=== PATIENT | female | born 1940 | race Caucasian/White ===

== ENCOUNTER → 2020-11-22 15:38 | Outpatient (CLI) | payer MEDICARE, OTHER, SELFPAY ==
--- NOTE | 2020-11-22 | DI.ECHO.S_ITS ---
[facility]---------+ [facility] +---------+ : : [address] : : : : [id number] : : : : Phone: [phone] +---------+ Echocardiogram Report + + :Name: JACINDA MOSQUERA Study Date: 11/22/2020 Height: 66.5 in: :[facility] ReadingLocation: Weight: 195 lb : : Gender: Female BSA: 2.0 m2 : :: 1940 Age: 80 yrs BP: 130/74 mmHg: :Reason For Study: THORACIC AORTIC ANEURYSM : :Ordering Physician: KARISSA, : :TAWANDA Performed By: Amy Trammell : :Referring: DEE SERVIN M : + + Interpretation Summary The left ventricle is normal in size. The ejection fraction is estimated to be 55-60%. The right ventricle is normal in size and function. Aortic valve was not well visualized however A bicuspid aortic valve cannot be excluded. One of the cusp is moderately calcified without any significant aortic stenosis or regurgitation. The ascending aorta is severely enlarged. 5.2 cm in diameter.The aortic arch is mildly enlarged. In August 2019, as per [facility] echo report, ascending aorta diameter about 5.1 cm and that time aortic valve reported to be tricuspid. The IVC is of normal diameter and collapses greater than 50% with a sniff. This suggests a low right atrial pressure of 3 mm Hg. There is mild luminal irregularity and echogenicity in the abdominal aorta, suggestive of aortic atherosclerotic disease. Procedure: A two-dimensional transthoracic echocardiogram with color flow and Doppler was performed. The study quality was technically adequate. There is no prior echocardiogram noted for this patient. The patient was in sinus rhythm with heart rates between 66-75 bpm during the exam. Left Ventricle: The left ventricle is normal in size. Left ventricular wall thickness is borderline increased. Proximal septal thickening is noted. There is no echo evidence for significant left ventricular outflow tract obstruction. There is no thrombus. The ejection fraction is estimated to be 55-60%. In parasternal long axis view, there appears to be tardo kinesis of basal posterior wall. Diastolic parameters suggest a relaxation abnormality of the left ventricle, consistent with probable normal filling pressures. Right Ventricle: The right ventricle is normal in size and function. Atria: Both atria are normal in size. There is no Doppler evidence for an interatrial shunt. Mitral Valve: The mitral valve leaflets are slightly calcified. There is mild mitral annular calcification. There is trace mitral regurgitation. Aortic Valve: The aortic valve is not well visualized. A bicuspid aortic valve cannot be excluded. One of the cusp is moderately calcified without any significant aortic stenosis or regurgitation. There is no aortic valve stenosis. There is trace aortic regurgitation. Tricuspid Valve: The tricuspid valve is normal in structure and function. There is trace tricuspid regurgitation. Pulmonary artery pressures cannot be estimated because of the lack of a measurable TR jet velocity but the IVC suggests a CVP of around 3 mmHg. Pulmonic Valve: The pulmonic valve is not well visualized. There is no pulmonic valvular regurgitation. Great Vessels: The aortic root is not well visualized. The ascending aorta is severely enlarged. There is mild luminal irregularity and echogenicity in the abdominal aorta, suggestive of aortic atherosclerotic disease. The aortic arch is mildly enlarged. The IVC is of normal diameter and collapses greater than 50% with a sniff. This suggests a low right atrial pressure of 3 mm Hg. Pericardium/ Pleura There is no pericardial effusion. There is an anterior echo-free space consistent with a fat pad. There is no pleural effusion. MMode/2D Measurements & Calculations LVIDd: 4.0 cm LVOT diam: 2.1 cm LVIDs: 2.4 cm asc Aorta Diam: 5.2 cm FS: 38.5 % Ao Arch Diam (Prox Trans): 3.6 cm IVSd: 1.1 cm LVPWd: 0.89 cm LV walters. diameter/BSA (cm/m^2): 2.0 LV sys. diameter/BSA (cm/m^2): 1.2 LA A2 area: 16.6 cm2 RA long axis: 3.8 cm LA A4 area: 14.2 cm2 RA area: 8.5 cm2 LA length (vol): 4.7 cm RA vol: 16.3 ml LA vol: 42.5 ml RA : 8.2 ml/m2 LA vol index: 21.3 ml/m2 IVC diam: 1.1 cm RVD1 (basal): 2.6 cm TAPSE: 2.0 cm Doppler Measurements & Calculations Ao V2 max: 103.4 cm/sec LVOT Max Clint: 95.3 cm/sec Ao V2 mean: 72.3 cm/sec LV V1 max P.6 mmHg Ao max P.3 mmHg LV V1 VTI: 17.8 cm Ao mean P.4 mmHg NIK(I,D): 3.0 cm2 Ao V2 VTI: 21.5 cm NIK(V,D): 3.3 cm2 sev ratio: 0.83 NIK indexed to BSA (cm^2/m^2): 1.5 MV E max clint: 73.7 cm/sec PA pr(Accel): 24.2 mmHg MV A max clint: 94.3 cm/sec MV E/A: 0.78 Med Peak E' Clint: 6.2 cm/sec E/E' med: 11.8 Lat Peak E' Clint: 8.1 cm/sec E/E' lat: 9.1 E/e' average: 10.5 MV dec time: 0.24 sec SV(LVOT): 64.1 ml Reading Physician:11:57 AM
== END ==
PROVIDERS: Family Provider Family Medicine; PCP Family Medicine; Referring Provider Internal Medicine Cardiovascular Disease; Visit Provider Internal Medicine Cardiovascular Disease
DX: I71.2 Thoracic aortic aneurysm, without rupture (principal)
CPT/HCPCS: 93306

== ENCOUNTER → 2022-01-11 10:52 | Outpatient (CLI) | payer OTHER, SELFPAY ==
[2022-01-11 12:48] LABS: Alanine Aminotransferase 26 IU/L (<35); Albumin 4.2 g/dL (3.5-5.0); Albumin Globulin Ratio 1.2 (1.0-2.8); Alkaline Phosphatase 120 U/L (38-126); Aspartate Aminotransferase 25 IU/L (14-36); BUN Creatinine Ratio 25.4 (6-22); Bilirubin Total 0.8 mg/dL (0.2-1.3); Blood Urea Nitrogen 18 mg/dL (7-17); Calcium 8.9 mg/dL (8.4-10.2); Carbon Dioxide 22 mmol/L (22-32); Chloride 102 mmol/L (98-107); Estimated Glomerular Filt Rate > 60 mL/min (>60); Globulin 3.4 g/dL (1.7-4.1); Glucose 345 mg/dL (80-110); HEMOLYSIS < 15 (0-50); Potassium 4.3 mmol/L (3.4-5.1); Sodium 133 mmol/L (137-145); Total Protein 7.6 g/dL (6.3-8.2)
[2022-01-11 12:49] LABS: Hemoglobin A1C% w Est Avg Glu 11.2 % (4.0-6.0)
[2022-01-11 13:56] LABS: Thyroid Stimulating Hormone 0.765 uIU/mL (0.47-4.68)
[2022-01-13 22:29] LABS: Metanephrine,Plasma 17.8 pg/mL (0.0-88.0)
== END ==
PROVIDERS: Family Provider Family Medicine; PCP Internal Medicine; Referring Provider Nurse Practitioner Family; Visit Provider Nurse Practitioner Family
DX: I10 Essential (primary) hypertension (principal); E78.5 Hyperlipidemia, unspecified
CPT/HCPCS: 36415; 80053; 83036; 83835; 84244; 84443

== ENCOUNTER → 2022-03-09 13:42 | Outpatient (CLI) | payer OTHER, SELFPAY ==
--- NOTE | 2022-03-09 | DI.ECHO.S_ITS ---
[facility]---------+ [facility] +---------+ : : [address] : : : : [id number] : : : : Phone: [phone]+ Echocardiogram Report + + :Name: JACINDA MOSQUERA Study Date: 03/09/2022 Height: 66 in : :[facility] ReadingLocation: Weight: 195 lb : : Gender: Female BSA: 2.0 m2 : :: 1940 Age: 81 yrs BP: 181/91 mmHg: :Reason For Study: Aortic, Ascending Aneurysm : :Ordering Physician: Ulices, : :Karen Performed By: Ramana Acosta : :Referring: Karen Elena : + + Interpretation Summary The left ventricle is normal in size. There is mild concentric left ventricular hypertrophy. Left ventricular systolic function is normal. The ejection fraction is estimated to be 55-60%. Hypokinesis along the basal to mid inferior/inferolateral segements which were noted on prior study. The right ventricle is normal in size and function. Pulmonary artery pressures cannot be estimated because of the lack of a measurable TR jet velocity. Both atria are normal in size. There is no significant valvular heart disease. The ascending aorta is severely enlarged and the aortic arch is moderately enlarged which both have not changed significantly since prior study. Procedure: A two-dimensional transthoracic echocardiogram with color flow and Doppler was performed. The study quality was technically adequate. Comparison is made with the echocardiogram of 11/22/2020. Left Ventricle: The left ventricle is normal in size. There is mild concentric left ventricular hypertrophy. Left ventricular systolic function is normal. The ejection fraction is estimated to be 55-60%. Hypokinesis along the basal to mid inferior/inferolateral segements which were noted on prior study. Diastolic function could not be accurately assessed due to unobtainable data. Right Ventricle: The right ventricle is normal in size and function. Atria: Both atria are normal in size. The interatrial septum grossly appears intact with no obvious evidence for an atrial septal defect. Mitral Valve: The mitral valve is normal in structure and function. There is trace mitral regurgitation. Aortic Valve: There is mild aortic valve sclerosis. The aortic valve is trileaflet. There is discrete nodular thickening of the non- coronary cusp. There is trace aortic regurgitation. Tricuspid Valve: The tricuspid valve is normal in structure and function. No tricuspid regurgitation. Pulmonary artery pressures cannot be estimated because of the lack of a measurable TR jet velocity. Pulmonic Valve: The pulmonic valve is normal in structure and function. There is no pulmonic valvular regurgitation. There is no significant valvular heart disease. Great Vessels: The aortic root is normal size. The ascending aorta is severely enlarged. The aortic arch is moderately enlarged. The IVC is of normal diameter and collapses greater than 50% with a sniff. This suggests a low right atrial pressure of 3 mm Hg. Pericardium/ Pleura There is no pericardial effusion. There is no pleural effusion. MMode/2D Measurements & Calculations LVIDd: 4.2 cm LVOT diam: 2.1 cm LVIDs: 2.8 cm Ao root diam: 3.3 cm FS: 33.3 % asc Aorta Diam: 5.1 cm IVSd: 1.1 cm Ao Arch Diam (Prox Trans): 3.8 cm LVPWd: 1.1 cm LV walters. diameter/BSA (cm/m^2): 2.1 LV sys. diameter/BSA (cm/m^2): 1.4 LA dimension: 2.3 cm RA long axis: 4.3 cm LA A2 area: 16.7 cm2 LA A4 area: 16.1 cm2 LA length (vol): 5.2 cm LA vol: 43.8 ml LA vol index: 22.1 ml/m2 TAPSE_phl: 1.8 cm Doppler Measurements & Calculations Ao V2 max: 115.0 cm/sec LVOT Max Clint: 89.4 cm/sec Ao V2 mean: 79.2 cm/sec LV V1 max P.2 mmHg Ao max P.0 mmHg LV V1 VTI: 19.2 cm Ao mean P.0 mmHg NIK(I,D): 2.8 cm2 Ao V2 VTI: 23.6 cm NIK(V,D): 2.7 cm2 sev ratio: 0.81 NIK indexed to BSA (cm^2/m^2): 1.4 MV E max clint: 104.0 cm/sec SV(LVOT): 66.5 ml MV A max clint: 94.3 cm/sec MV E/A: 1.1 Med Peak E' Clint: 6.4 cm/sec E/E' med: 16.3 Lat Peak E' Clint: 8.4 cm/sec E/E' lat: 12.4 E/e' average: 14.3 MV dec time: 0.20 sec AV VR_phl: 0.78 MV P1/2t-pr_phl: 59.0 msec NIK(VTI)/BSA_phl: 1.4 Reading Physician:03:32 PM
== END ==
PROVIDERS: Family Provider Family Medicine; PCP Internal Medicine; Referring Provider Nurse Practitioner Family; Visit Provider Nurse Practitioner Family
DX: I71.2 Thoracic aortic aneurysm, without rupture (principal)
CPT/HCPCS: 93306

== ENCOUNTER → 2023-12-06 15:05 | Outpatient (CLI) | payer OTHER, SELFPAY ==
--- NOTE | 2023-12-06 15:08 | DI.US.S_ITS ---
PROCEDURE: US PERIPH VENOUS LOW EXTREM BI INDICATIONS: FLOOW UP FOR SVT RIGHT, NEW SWELLING IN LEFT LEG TECHNIQUE: Real-time imaging, as well as color and pulse Doppler interrogation, were performed of the deep veins of both legs from the inguinal ligament to the popliteal fossa, with documentation of the visualized calf veins. COMPARISON: None. FINDINGS: Right: The common femoral, femoral, popliteal, and the visualized calf veins are normally compressible, and free of intraluminal thrombus. Color and pulse Doppler demonstrate normal phasic intravascular flow. There is normal augmentation response to distal compression maneuver. Superficial venous thrombosis can be seen on the right, involving the greater saphenous vein. Left: The common femoral, femoral, popliteal, and the visualized calf veins are normally compressible, and free of intraluminal thrombus. Color and pulse Doppler demonstrate normal phasic intravascular flow. There is normal augmentation response to distal compression maneuver. IMPRESSION: No findings of deep venous thrombosis in either lower extremity. Superficial venous thrombosis is seen on the right, with thrombus within the greater saphenous vein. By report, this was present previously. Dictated by: Ridge Pride M.D. on 12/06/2023 at 15:24 Approved by: Ridge Pride M.D. on 12/06/2023 at 15:25
== END ==
PROVIDERS: Family Provider Family Medicine; PCP Internal Medicine; Referring Provider Nurse Practitioner Acute Care; Visit Provider Nurse Practitioner Acute Care
DX: I82.811 Embolism and thrombosis of superficial veins of right lower extremity (principal); R60.9 Edema, unspecified
CPT/HCPCS: 93970

== ENCOUNTER → 2024-12-28 10:35 | Outpatient (CLI) | payer OTHER, SELFPAY ==
[2024-12-28 11:29] LABS: Influenza A - CEPHEID Flu A NEGATIVE (NEGATIVE); Influenza B - CEPHEID Flu B NEGATIVE (NEGATIVE); Respiratory Syncytial Virus Negative (Negative)
[2024-12-28 11:45] LABS: COVID-19 CEPHEID 4-PLEX PCR Negative (Negative)
== END ==
PROVIDERS: Family Provider Family Medicine; PCP Internal Medicine; Visit Provider Nurse Practitioner Family
DX: R50.9 Fever, unspecified (principal); J02.9 Acute pharyngitis, unspecified
CPT/HCPCS: 0241U; 87070

== ENCOUNTER → 2024-12-28 10:57 | Outpatient (CLI) | payer OTHER, SELFPAY ==
--- NOTE | 2024-12-28 10:57 | DI.RAD.S_ITS ---
PROCEDURE: XR CHEST 2V INDICATIONS: Cough TECHNIQUE: 2 views of the chest were acquired. COMPARISON: CT chest abdomen pelvis angiogram 09/08/2019. FINDINGS: Surgical changes and devices: None. Lungs and pleura: Hyperinflation with diffuse reticulated opacification. No pleural effusions or pneumothorax. 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 Heart size is normal. Bones and chest wall: No suspicious bony abnormalities. Soft tissues appear unremarkable. IMPRESSION: 1. Emphysema with possible underlying interstitial lung disease. 2. 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 Please refer to the 09/08/2019 CT chest abdomen pelvis angiogram report for details and follow-up recommendations. Dictated by: Bart Domínguez M.D. on 12/28/2024 at 17:20 Approved by: Bart Domínguez M.D. on 12/28/2024 at 17:23
== END ==
LOC: RAD 10:57
PROVIDERS: Family Provider Family Medicine; PCP Internal Medicine; Referring Provider Nurse Practitioner Family; Visit Provider Nurse Practitioner Family
DX: R05.9 Cough, unspecified (principal); R50.9 Fever, unspecified; J02.9 Acute pharyngitis, unspecified; J43.9 Emphysema, unspecified; I71.22 Aneurysm of the aortic arch, without rupture
CPT/HCPCS: 0241U; 71046; 87070

== ENCOUNTER → 2025-01-30 12:03 | Outpatient (CLI) | payer OTHER, SELFPAY ==
--- NOTE | 2025-01-30 12:04 | DI.ECHO.S_ITS ---
[facility] : : [address] : : [facility] : : [place], : : [place] [id number] : : Phone: [phone] Echocardiogram Report + + :Name: JACINDA MOSQUERA Study Date: 01/30/2025 Height: 66 in : :[facility] ReadingLocation: Weight: 185 lb : : Gender: Female BSA: 1.9 m2 : :: 1940 Age: 84 yrs BP: 170/106 mmHg: :Reason For Study: ANEURYSM OF ASCENIDNG AORTA : :Ordering Physician: ASHLEIGH, : :GIOVANNA Performed By: Kunal Ni : :Referring: GIOVANNA SOTELO : + + Interpretation Summary The left ventricle is normal in size. Left ventricular ejection fraction is estimated to be 55 +/- 5%. No significant change in LVEF from the previous study. Normal RV size and function In the study, aortic valve appears to be tricuspid with heavy calcification of the noncoronary cusp with some restriction without any significant aortic stenosis. Trivial aortic regurgitation. Nodular calcified density attached to the coaptation margin of right coronary cusp The ascending aorta is severely enlarged. 5.1 cm in diameter. Previously 5.2 cm. The IVC is of normal diameter and collapses greater than 50% with a sniff. This suggests a low right atrial pressure of 3 mm Hg. There is mild luminal irregularity and echogenicity in the abdominal aorta, suggestive of aortic atherosclerotic disease. BP: 170/106 mmHg Procedure: A two-dimensional transthoracic echocardiogram with color flow and Doppler was performed. The study quality was technically good. There is no prior echocardiogram noted for this patient. The patient was in normal sinus rhythm during the exam. Left Ventricle: The left ventricle is normal in size. Proximal septal thickening is noted. There is no echo evidence for significant left ventricular outflow tract obstruction. There is no thrombus. Left ventricular ejection fraction is estimated to be 55 +/- 5%. In parasternal long axis view, there appears to be tardo kinesis of basal posterior wall. Unchanged from the previous study. MV E/A: 1.1 Med Peak E' Clint: 5.9 cm/sec E/E' med: 16.2. Right Ventricle: The right ventricle is normal in size and function. Atria: The left atrial size is normal. There has been no significant change since the previous study. Right atrial size is normal. There is no Doppler evidence for an interatrial shunt. Mitral Valve: The mitral valve leaflets are slightly calcified. There is mild mitral annular calcification. There is trace mitral regurgitation. Aortic Valve: In the study, aortic valve appears to be tricuspid with heavy calcification of the noncoronary cusp with some restriction without any significant aortic stenosis. Trivial aortic regurgitation. Nodular calcified density attached to the coaptation margin of right coronary cusp. There is trace aortic regurgitation. Tricuspid Valve: The tricuspid valve leaflets are thin and pliable. Pulmonary artery pressures cannot be estimated because of the lack of a measurable TR jet velocity. There is trace tricuspid regurgitation. Pulmonic Valve: The pulmonic valve is not well seen, but is grossly normal. There is no pulmonic valvular regurgitation. Great Vessels: The aortic root is mildly dilated. The ascending aorta is severely enlarged. There is mild luminal irregularity and echogenicity in the abdominal aorta, suggestive of aortic atherosclerotic disease. The pulmonary artery is normal size. The IVC is of normal diameter and collapses greater than 50% with a sniff. This suggests a low right atrial pressure of 3 mm Hg. Pericardium/ Pleura There is no pericardial effusion. There is no pleural effusion. MMode/2D Measurements & Calculations LVIDd: 4.1 cm AoV Openin.5 cm LVIDs: 2.9 cm LVOT diam: 2.3 cm IVSd: 1.3 cm Ao root diam: 3.7 cm LVPWd: 0.86 cm asc Aorta Diam: 5.1 cm LV walters. diameter/BSA (cm/m^2): 2.1 Ao Arch Diam (Prox Trans): 2.1 cm LV sys. diameter/BSA (cm/m^2): 1.5 FS: 29.5 % EPSS: 1.1 cm LA A2 area: 24.5 cm2 RA long axis: 3.7 cm LA A4 area: 15.9 cm2 RA area: 9.9 cm2 LA length (vol): 5.5 cm RA vol: 22.1 ml LA vol: 60.3 ml RA : 11.4 ml/m2 LA vol index: 31.2 ml/m2 RVD1 (basal): 2.7 cm IVC diam: 1.9 cm RVD2 (mid): 2.3 cm TAPSE: 2.1 cm Doppler Measurements & Calculations Ao V2 max: 103.1 cm/sec LVOT Max Clint: 76.8 cm/sec Ao V2 mean: 69.5 cm/sec LV V1 max P.4 mmHg Ao V2 VTI: 21.2 cm LV V1 VTI: 16.8 cm Ao max P.2 mmHg Ao mean P.2 mmHg NIK(I,D): 3.3 cm2 MV E max clint: 94.9 cm/sec NIK(V,D): 3.1 cm2 MV A max clint: 83.2 cm/sec NIK indexed to BSA (cm^2/m^2): 1.7 MV E/A: 1.1 sev ratio: 0.79 Med Peak E' Clint: 5.9 cm/sec E/E' med: 16.2 Lat Peak E' Clint: 7.0 cm/sec E/E' lat: 13.5 E/e' average: 14.8 MV dec time: 0.21 sec PA V2 max: 69.4 cm/sec PA V2 mean: 50.8 cm/sec PA mean P.1 mmHg PA pr(Accel): 28.9 mmHg SV(LVOT): 69.4 ml Reading Physician:03:42 PM
== END ==
LOC: ECHO 12:03
PROVIDERS: Family Provider Family Medicine; Referring Provider Nurse Practitioner Acute Care; Visit Provider Nurse Practitioner Acute Care
DX: I71.21 Aneurysm of the ascending aorta, without rupture (principal); I34.81 Nonrheumatic mitral (valve) annulus calcification
CPT/HCPCS: 93306